=== PATIENT | male | born 1965 | race Two or more races ===

== ENCOUNTER 2019-03-22 16:05 | Emergency (ER) | payer OTHER ==
[~2019-03-22] VITALS: Ht 172.7 cm; Wt 81.6 kg
[2019-03-22 16:15] VITALS: BP 110/68
== END 2019-03-22 16:31 | disposition home or self-care (01) ==
LOC: ER 16:05
DX: I10 Essential (primary) hypertension (principal); Z60.2 Problems related to living alone; Z76.0 Encounter for issue of repeat prescription

== ENCOUNTER 2019-04-17 22:13 | Emergency (ER) | payer OTHER ==
[~2019-04-17] VITALS: Ht 172.7 cm; Wt 81.6 kg
[2019-04-17 22:33] VITALS: BP 129/79
--- NOTE | 2019-04-17 22:35 | NUR ---
SEEN AND EXAMINED BY JEFF VILLEDA
== END 2019-04-17 23:53 | disposition home or self-care (01) ==
LOC: ER 22:15
DX: M25.512 Pain in left shoulder (principal); I10 Essential (primary) hypertension; Z60.2 Problems related to living alone
CPT/HCPCS: 73030-TC

== ENCOUNTER 2019-07-04 15:26 | Emergency (ER) | payer OTHER ==
[~2019-07-04] VITALS: Ht 172.7 cm; Wt 81.6 kg
--- NOTE | 2019-07-04 16:00 | NUR ---
patient came in for medrefill for BP meds. PMD not available. Breathing evenly and unlabored. kept comfortable, will continue to monitor accordingly.
[2019-07-04 16:07] VITALS: BP 112/76
--- NOTE | 2019-07-04 16:07 | NUR ---
Patient discharged to home in stable condition. Written and verbal after care instructions given. Patient verbalizes understanding of instruction.
== END 2019-07-04 16:07 | disposition home or self-care (01) ==
LOC: ER 15:26
DX: I10 Essential (primary) hypertension (principal); Z76.0 Encounter for issue of repeat prescription; Z60.2 Problems related to living alone